=== PATIENT | female | born 1995 | race Caucasian/White ===

== ENCOUNTER 2023-01-02 17:21 | Emergency (ER) | payer MEDICAID ==
[2023-01-02] MEDS ORDERED: Polyethylene Glycol 3350 Powder 17 GM Packet PO ONE (18:14)
== END 2023-01-02 18:35 | disposition home or self-care (01) ==
LOC: JD.ED 17:21
DX: K62.5 Hemorrhage of anus and rectum (principal); K59.00 Constipation, unspecified; F17.210 Nicotine dependence, cigarettes, uncomplicated; Z79.899 Other long term (current) drug therapy
CPT/HCPCS: 99283; A9270

== ENCOUNTER 2023-12-02 17:18 | Emergency (ER) | payer BC, MEDICAID ==
[2023-12-02] MEDS: predniSONE 10 MG Tab PO ONE (19:34)
[2023-12-02] MEDS: cefTRIAXone 1 GM, Lidocaine 1% 2.1 ML IM ONE (19:34)
[2023-12-02] MEDS: Lidocaine 2% Viscous Solution 15 ML UD PO ONE (19:35)
[2023-12-02] MEDS: Ketorolac 60 MG/2 ML SDV IM ONE (19:35)
== END 2023-12-02 19:53 | disposition home or self-care (01) ==
LOC: JD.ED 17:18
DX: J02.0 Streptococcal pharyngitis (principal); Z79.899 Other long term (current) drug therapy
CPT/HCPCS: 87651; 96372; 99284; A9270; J0696; J1885; J7512; 99283; J3490

== ENCOUNTER 2024-04-03 05:24 | Emergency (ER) | payer BC ==
[2024-04-03] MEDS: Sodium Chloride 0.9% 1,000 ML IV STA (06:16)
[2024-04-03] MEDS: Ondansetron 4 MG/2 ML SDV IVPUSH ONE (06:16)
[2024-04-03] MEDS: Sodium Chloride 0.9% 10 ML Syringe FLUSH PRN (06:16)
[2024-04-03] MEDS: HYDROmorphone 0.5 MG/0.5 ML Syringe IVPUSH ONE ×2 (06:16→09:03)
[2024-04-03 06:47] LABS: BASOPHILS ABSOLUTE AUTO 0.1 K/mm3 (0.0-0.2); BASOPHILS PERCENT AUTO 0.6 % (0.0-1.0); EOSINOPHILS ABSOLUTE AUTO 0.2 K/mm3 (0.0-0.4); EOSINOPHILS PERCENT AUTO 2.7 % (0.0-6.0); HEMATOCRIT 35.5 % (37.0-47.0); IMMATURE GRAN ABSOLUTE AUTO 0.02 K/mm3 (0.00-0.05); IMMATURE GRAN PERCENT AUTO 0.2 % (0.0-0.4); LYMPHOCYTES ABSOLUTE AUTO 3.6 K/mm3 (1.0-4.8); MEAN CORPUSCULAR HEMOGLOBIN 29.9 pg (28.0-32.0); MEAN CORPUSCULAR HGB CONC 33.8 g/dl (32.0-36.0); MEAN CORPUSCULAR VOLUME 88.3 fl (83.0-99.0); MEAN PLATELET VOLUME 10.7 fl (9.4-12.3); MONOCYTES ABSOLUTE AUTO 0.6 K/mm3 (0.0-0.8); MONOCYTES PERCENT AUTO 6.7 % (0.0-8.0); NEUTROPHILS ABSOLUTE AUTO 3.9 K/mm3 (1.8-7.7); NEUTROPHILS PERCENT AUTO 46.8 % (41.0-71.0); PLATELET COUNT,PLT 268 K/mm3 (150-400); RED BLOOD CELL COUNT 4.02 M/mm3 (4.10-5.30); WHITE BLOOD CELL COUNT,WBC 8.41 K/mm3 (3.9-11.3)
[2024-04-03 06:50] LABS: APPEARANCE,URINE CLEAR (Clear); BILIRUBIN,URINE NEGATIVE (Negative); COLOR,URINE YELLOW (Yellow); GLUCOSE,URINE NEGATIVE (Negative); KETONES,URINE 2+ (Negative); LEUKOCYTE ESTERASE,URINE NEGATIVE (Negative); NITRITE,URINE NEGATIVE (Negative); OCCULT BLOOD,URINE NEGATIVE (Negative); PH,URINE 5.5 (5.0-8.0); PROTEIN,URINE TRACE (Negative); UROBILINOGEN,URINE 0.2 (0.2-1.0)
[2024-04-03 06:57] LABS: A/G RATIO 1.3 (1-2); ALBUMIN 4.3 g/dl (3.4-5.0); ANION GAP 12.8 (5-15); BILIRUBIN TOTAL 0.5 mg/dL (0.2-1.0); CALCIUM 8.7 mg/dL (8.5-10.1); EST CRCL DRUG DOSING (CG) 72.32 mL/min; POTASSIUM,K 3.8 mEq/L (3.5-5.1); PROTEIN TOTAL,TP 7.5 g/dl (6.4-8.2)
[2024-04-03] MEDS: Sodium Chloride 0.9% 10 ML Syringe FLUSH ONE (07:41)
[2024-04-03] MEDS: Iopamidol 612 MG/ML 100 ML Bottle IVPUSH ONE (07:41)
[2024-04-03 07:43] LABS: BACTERIA,URINE FEW /hpf (FEW); MUCUS,URINE FEW /hpf (FEW); RBC,URINE 0-5 /hpf (0-5); WBC,URINE 0-5 /hpf (0-5)
[2024-04-03] MEDS: Ketorolac 30 MG/ML SDV IVPUSH ONE (09:02)
== END 2024-04-03 09:39 | disposition home or self-care (01) ==
LOC: JD.ED 05:24
DX: N83.202 Unspecified ovarian cyst, left side (principal); Z79.891 Long term (current) use of opiate analgesic; Z79.899 Other long term (current) drug therapy
CPT/HCPCS: 36415; 74177; 80053; 81001; 83690; 84703; 85025; 86140; 96361; 96374; 96375; 96376; 99284; J1171; J1885; J2405; J3490; J7030; Q9967

== ENCOUNTER 2024-08-07 03:34 | Emergency (ER) | payer BC ==
[2024-08-07] MEDS ORDERED: Naloxone 0.4 MG/ML SDV IVPUSH PRN (03:59)
[2024-08-07] MEDS: Morphine 4 MG/ML Syringe IVPUSH ONE (04:07)
[2024-08-07] MEDS: Ondansetron 4 MG/2 ML SDV IVPUSH ONE (04:07)
[2024-08-07 04:11] LABS: BASOPHILS ABSOLUTE AUTO 0.1 K/mm3 (0.0-0.2); BASOPHILS PERCENT AUTO 0.5 % (0.0-1.0); EOSINOPHILS ABSOLUTE AUTO 0.1 K/mm3 (0.0-0.4); EOSINOPHILS PERCENT AUTO 0.8 % (0.0-6.0); HEMATOCRIT 37.8 % (37.0-47.0); HEMOGLOBIN 12.7 gm/dl (12.0-16.0); IMMATURE GRAN ABSOLUTE AUTO 0.03 K/mm3 (0.00-0.05); IMMATURE GRAN PERCENT AUTO 0.3 % (0.0-0.4); LYMPHOCYTES ABSOLUTE AUTO 2.7 K/mm3 (1.0-4.8); LYMPHOCYTES PERCENT AUTO 27.8 % (24.0-44.0); MEAN CORPUSCULAR HEMOGLOBIN 28.9 pg (28.0-32.0); MEAN CORPUSCULAR HGB CONC 33.6 g/dl (32.0-36.0); MEAN CORPUSCULAR VOLUME 86.1 fl (83.0-99.0); MONOCYTES ABSOLUTE AUTO 0.5 K/mm3 (0.0-0.8); MONOCYTES PERCENT AUTO 5.4 % (0.0-8.0); NEUTROPHILS ABSOLUTE AUTO 6.3 K/mm3 (1.8-7.7); NEUTROPHILS PERCENT AUTO 65.2 % (41.0-71.0); PLATELET COUNT,PLT 318 K/mm3 (150-400); RED BLOOD CELL COUNT 4.39 M/mm3 (4.10-5.30); WHITE BLOOD CELL COUNT,WBC 9.62 K/mm3 (3.9-11.3)
[2024-08-07 04:12] LABS: APPEARANCE,URINE CLEAR (Clear); BILIRUBIN,URINE NEGATIVE (Negative); COLOR,URINE YELLOW (Yellow); GLUCOSE,URINE NEGATIVE (Negative); KETONES,URINE TRACE (Negative); LEUKOCYTE ESTERASE,URINE TRACE (Negative); NITRITE,URINE NEGATIVE (Negative); OCCULT BLOOD,URINE 2+ (Negative); PROTEIN,URINE 2+ (Negative); UROBILINOGEN,URINE 0.2 (0.2-1.0)
[2024-08-07 04:41] LABS: A/G RATIO 1.3 (1-2); ALBUMIN 4.2 g/dl (3.4-5.0); ANION GAP 10.9 (5-15); BILIRUBIN TOTAL 0.4 mg/dL (0.2-1.0); CALCIUM 8.8 mg/dL (8.5-10.1); EST CRCL DRUG DOSING (CG) 75.37 mL/min; POTASSIUM,K 3.9 mEq/L (3.5-5.1); PROTEIN TOTAL,TP 7.5 g/dl (6.4-8.2)
[2024-08-07 04:44] LABS: LACTIC ACID 0.6 mmol/L (0.4-2.0)
[2024-08-07 05:28] LABS: BACTERIA,URINE MODERATE /hpf (FEW); EPITHELIAL CELLS,URINE 0-5 /hpf (0-5); MUCUS,URINE FEW /hpf (FEW)
[2024-08-07] MEDS: Amoxicillin/Clavulanate K 875-125 MG Tab PO ONE (05:37)
[2024-08-07] MEDS: Acetaminophen/oxyCODONE 325-5 MG Tab PO ONE (06:01)
== END 2024-08-07 06:00 | disposition home or self-care (01) ==
LOC: JD.ED 03:34
DX: N83.202 Unspecified ovarian cyst, left side (principal); N39.0 Urinary tract infection, site not specified; Z79.899 Other long term (current) drug therapy
CPT/HCPCS: 36415; 76830; 80053; 81001; 83605; 84703; 85025; 87086; 87088; 87186; 96374; 96375; 99284; A9270; J2270; J2405

== ENCOUNTER 2024-09-19 14:36 | Emergency (ER) | payer SELFPAY ==
[2024-09-19] MEDS: Sodium Chloride 0.9% 1,000 ML IV SCH ×2 (15:16→18:41)
[2024-09-19] MEDS: Sodium Chloride 0.9% 10 ML Syringe FLUSH ONE (15:16)
[2024-09-19] MEDS: Ketorolac 30 MG/ML SDV IVPUSH ONE (15:16)
[2024-09-19] MEDS: Iopamidol 612 MG/ML 100 ML Bottle IVPUSH ONE (15:30)
[2024-09-19] MEDS: VANCOmycin 2 GM/400 ML 2 GM in Premix Bag 1 BAG IV ONE (17:10)
[2024-09-19] MEDS: fentaNYL 100 MCG/2 ML SDV IVPUSH ONE (17:12)
[2024-09-19 17:14] LABS: BASOPHILS ABSOLUTE AUTO 0.1 K/mm3 (0.0-0.2); BASOPHILS PERCENT AUTO 0.4 % (0.0-1.0); EOSINOPHILS ABSOLUTE AUTO 0.3 K/mm3 (0.0-0.4); EOSINOPHILS PERCENT AUTO 1.8 % (0.0-6.0); HEMATOCRIT 35.1 % (37.0-47.0); HEMOGLOBIN 11.5 gm/dl (12.0-16.0); IMMATURE GRAN ABSOLUTE AUTO 0.04 K/mm3 (0.00-0.05); IMMATURE GRAN PERCENT AUTO 0.3 % (0.0-0.4); LYMPHOCYTES ABSOLUTE AUTO 3.4 K/mm3 (1.0-4.8); LYMPHOCYTES PERCENT AUTO 24.4 % (24.0-44.0); MEAN CORPUSCULAR HEMOGLOBIN 29.2 pg (28.0-32.0); MEAN CORPUSCULAR HGB CONC 32.8 g/dl (32.0-36.0); MEAN CORPUSCULAR VOLUME 89.1 fl (83.0-99.0); MEAN PLATELET VOLUME 10.4 fl (9.4-12.3); MONOCYTES ABSOLUTE AUTO 0.9 K/mm3 (0.0-0.8); MONOCYTES PERCENT AUTO 6.2 % (0.0-8.0); NEUTROPHILS ABSOLUTE AUTO 9.4 K/mm3 (1.8-7.7); NEUTROPHILS PERCENT AUTO 66.9 % (41.0-71.0); PLATELET COUNT,PLT 239 K/mm3 (150-400); RED BLOOD CELL COUNT 3.94 M/mm3 (4.10-5.30); WHITE BLOOD CELL COUNT,WBC 14.09 K/mm3 (3.9-11.3)
[2024-09-19 17:32] LABS: ALBUMIN 3.3 g/dl (3.4-5.0); BILIRUBIN TOTAL 0.6 mg/dL (0.2-1.0); BUN/CREATININE RATIO 12.5 (14-18); C-REACTIVE PROTEIN 3.88 mg/dL (<0.30); CALCIUM 8.2 mg/dL (8.5-10.1); CREATININE 0.8 mg/dL (0.55-1.02); EST CRCL DRUG DOSING (CG) 94.21 mL/min; PROTEIN TOTAL,TP 6.5 g/dl (6.4-8.2)
[2024-09-19 17:59] LABS: LACTIC ACID 0.6 mmol/L (0.4-2.0)
[2024-09-19] MEDS: Ondansetron 4 MG/2 ML SDV IVPUSH ONE (18:41)
[2024-09-19] MEDS: diphenhydrAMINE 50 MG/ML SDV IVPUSH ONE (19:25)
[2024-09-19] MEDS: Metoclopramide 10 MG/2 ML SDV IVPUSH ONE (19:27)
[2024-09-19] MEDS: Dexamethasone 10 MG/ML SDV IVPUSH ONE (19:30)
[2024-09-19] MEDS: droPERidol 2.5 MG/ML SDV IV STA (20:43)
== END 2024-09-19 21:43 ==
LOC: JD.ED 14:36
DX: L03.211 Cellulitis of face (principal); L02.01 Cutaneous abscess of face; I96 Gangrene, not elsewhere classified; Z79.899 Other long term (current) drug therapy
CPT/HCPCS: 36415; 70487; 71250; 80053; 83605; 85025; 86140; 87040; 96361; 96365; 96366; 96375; 99285; J1100; J1200; J1790; J1885; J2405; J2765; J3010; J3372; J7030; Q9967

== ENCOUNTER 2024-10-02 11:30 | Emergency (ER) | payer SELFPAY ==
[2024-10-02 12:18] LABS: BASOPHILS PERCENT AUTO 0.4 % (0.0-1.0); EOSINOPHILS ABSOLUTE AUTO 0.1 K/mm3 (0.0-0.4); EOSINOPHILS PERCENT AUTO 1.7 % (0.0-6.0); HEMATOCRIT 37.3 % (37.0-47.0); HEMOGLOBIN 12.5 gm/dl (12.0-16.0); IMMATURE GRAN ABSOLUTE AUTO 0.03 K/mm3 (0.00-0.05); IMMATURE GRAN PERCENT AUTO 0.4 % (0.0-0.4); LYMPHOCYTES ABSOLUTE AUTO 2.4 K/mm3 (1.0-4.8); LYMPHOCYTES PERCENT AUTO 31.8 % (24.0-44.0); MEAN CORPUSCULAR HEMOGLOBIN 28.9 pg (28.0-32.0); MEAN CORPUSCULAR HGB CONC 33.5 g/dl (32.0-36.0); MEAN CORPUSCULAR VOLUME 86.3 fl (83.0-99.0); MEAN PLATELET VOLUME 9.8 fl (9.4-12.3); MONOCYTES ABSOLUTE AUTO 0.6 K/mm3 (0.0-0.8); NEUTROPHILS ABSOLUTE AUTO 4.3 K/mm3 (1.8-7.7); NEUTROPHILS PERCENT AUTO 57.7 % (41.0-71.0); RED BLOOD CELL COUNT 4.32 M/mm3 (4.10-5.30); WHITE BLOOD CELL COUNT,WBC 7.49 K/mm3 (3.9-11.3)
[2024-10-02 12:26] LABS: PLATELET COUNT,PLT 364 K/mm3 (150-400)
[2024-10-02] MEDS: Ondansetron 4 MG/2 ML SDV IVPUSH ONE (12:31)
[2024-10-02] MEDS: Sodium Chloride 0.9% 10 ML Syringe FLUSH PRN (12:31)
[2024-10-02] MEDS: Sodium Chloride 0.9% 1,000 ML IV SCH (12:31)
[2024-10-02 12:44] LABS: A/G RATIO 1.1 (1-2); ALBUMIN 3.8 g/dl (3.4-5.0); ANION GAP 10.8 (5-15); BILIRUBIN TOTAL 0.7 mg/dL (0.2-1.0); BUN/CREATININE RATIO 16.7 (14-18); C-REACTIVE PROTEIN 0.83 mg/dL (<0.30); CREATININE 0.9 mg/dL (0.55-1.02); EST CRCL DRUG DOSING (CG) 83.74 mL/min; MAGNESIUM 1.9 mg/dL (1.8-2.4); POTASSIUM,K 3.8 mEq/L (3.5-5.1); PROTEIN TOTAL,TP 7.4 g/dl (6.4-8.2)
[2024-10-02 12:45] LABS: LACTIC ACID 0.7 mmol/L (0.4-2.0)
[2024-10-02] MEDS: Ketorolac 30 MG/ML SDV IVPUSH ONE (13:16)
[2024-10-02 13:26] LABS: APPEARANCE,URINE CLEAR (Clear); BILIRUBIN,URINE NEGATIVE (Negative); COLOR,URINE LIGHT YELLOW (Yellow); GLUCOSE,URINE NEGATIVE (Negative); KETONES,URINE NEGATIVE (Negative); LEUKOCYTE ESTERASE,URINE NEGATIVE (Negative); NITRITE,URINE NEGATIVE (Negative); OCCULT BLOOD,URINE NEGATIVE (Negative); PROTEIN,URINE NEGATIVE (Negative); UROBILINOGEN,URINE 0.2 (0.2-1.0)
== END 2024-10-02 14:15 | disposition home or self-care (01) ==
LOC: JD.ED 11:30
DX: R42 Dizziness and giddiness (principal); R11.0 Nausea; Z79.899 Other long term (current) drug therapy
CPT/HCPCS: 36415; 70487; 70487-26; 80053; 81003; 83605; 83735; 84702; 85025; 86140; 93005; 96361; 96374; 96375; 99283; 99284-25; J1885; J2405; J7030

== ENCOUNTER 2024-10-05 02:18 | Emergency (ER) | payer SELFPAY ==
[2024-10-05] MEDS: LORazepam 1 MG Tab PO ONE (03:03)
[2024-10-05] MEDS: Ketorolac 60 MG/2 ML SDV IM ONE (03:03)
== END 2024-10-05 03:10 | disposition home or self-care (01) ==
LOC: JD.ED 02:18
DX: F30.9 Manic episode, unspecified (principal); Z79.899 Other long term (current) drug therapy; Z86.16 Personal history of COVID-19
CPT/HCPCS: 99284; A9270; 99283; J1885